=== PATIENT | male | born 1960 | race Caucasian/White ===

== ENCOUNTER 2017-09-10 17:25 | Observation (INO) | payer OTHER ==
[2017-09-10] MEDS ORDERED: NS 500 ML IV ONE (17:55)
--- NOTE | 2017-09-10 17:59 | EDPHY ---
H & P Time Seen by Provider: 09/10/17 17:42 HPI/ROS: CHIEF COMPLAINT: Confusion, fogginess HISTORY OF PRESENT ILLNESS: The patient is a 56-year-old male with no past medical history presents to the emergency department with vague complaints of fogginess and confusion. The patient states that he was lying on the couch yesterday. His told was time for dinner. He noticed an onset of blurred vision. He attempted to get up from the couch but had difficulty. He felt as though his body was not responding and he was in a "dreamlike state." The patient attempted to walk to the kitchen. He felt like he was "drunk." He ran into a chair on the way. He attempted to serve himself dinner but his right arm was uncoordinated. Symptoms lasted for about an hour and then resolved. He woke this morning and felt slightly weird but much better than last evening. He went to work. His symptoms improved at the day. He has had no chest pain or short of breath. No headache or neck pain. No further visual change. No recent fall or trauma. REVIEW OF SYSTEMS: My complete review of systems is negative except as mentioned in the HPI. Past Medical/Surgical History: Negative Past surgical history: Tonsillectomy Social history: The patient does not smoke. He drinks beer regularly. He will alcohol last evening. Family history: His son developed epilepsy Smoking Status: Former smoker Physical Exam: Vitals noted GENERAL: Well-appearing, in no acute distress, alert. HEENT: Eyes normal to inspection, normal pharynx, no signs of dehydration. NECK: [No thyromegaly, no lymphadenopathy, supple. RESPIRATORY: Clear to auscultation bilaterally, no rales, rhonchi or wheezing. CVS: Regular rate and rhythm, no rubs, murmurs, or gallops. ABDOMEN: Soft, nontender, nondistended, no organomegaly. BACK: Normal to inspection, no CVA tenderness. SKIN: Normal color, no rash, warm, dry. No pallor. EXTREMITIES: No pedal edema, no calf tenderness, no Homans sign or cords, no joint swelling. NEURO/PSYCH: Higher functions: Alert and Oriented x3. Normal speech and cognition. Normal mood and affect. Cranial nerves: Normal as tested. Cerebellar: Normal as tested. Good finger to nose, good [id number], normal gait. Peripheral exam: Normal motor exam. Normal sensation. Normal reflexes. NIHSS=0 Constitutional: Initial Vital Signs Temperature (C) 36.9 C 09/10/17 17:30 Heart Rate 64 09/10/17 17:30 Respiratory Rate 18 09/10/17 17:30 Blood Pressure 194/81 H 09/10/17 17:30 O2 Sat (%) 96 09/10/17 17:30 O2 Delivery Mode Room Air Allergies/Adverse Reactions: No Known Allergies Allergy (Unverified 09/10/17 17:33) Home Medications: Medication Instructions Recorded NK [No Known Home Meds] 09/10/17 Medical Decision Making - Diagnostics Imaging Results: Imaging Impressions Brain MRI 09/10/17 17:56 Impression: 1. Small recent lacunar infarct anterior medial left thalamus. 2. Tiny nonspecific hyperintense T2/FLAIR signal abnormality in the white matter of bilateral frontal subcortical white matter superiorly. Differential diagnosis includes microvascular ischemic disease, post-infectious/post- inflammatory sequela, atypical demyelinating disease, or migraine-related sequela. If symptoms worsen, additional imaging may be necessary. Findings discussed with Iwona Arevalo M.D. at 19:01 hour, 09/10/2017. ED Course/Re-evaluation: In the emergency department I discussed possible etiologies with the patient. I answered all of his questions. An IV was placed. Laboratory studies were obtained. MRI was ordered. The patient's symptoms are now resolved. His NIHSS equals 0. His symptoms started yesterday evening during dinner. CBC is normal. Chemistry panel notable for a low CO2 of 20. Coags negative. Troponin negative. EKG shows normal sinus rhythm, normal rate, normal axis, normal intervals. There are no ST or T-wave abnormalities. EKG is normal as interpreted by me. Differential Diagnosis: My differential includes but limited to ischemic CVA, hemorrhagic CVA, dissection, aneurysm, dysrhythmia, ACS, acute NE, electrolyte abnormality, sugar mallet, dehydration, vasovagal episode, seizure - Data Points Laboratory Results: Laboratory Results 09/10/17 17:45 09/10/17 17:45 09/10/17 09/10/17 09/10/17 17:45 17:45 17:45 WBC 6.67 10^3/uL 10^3/uL (3.80-9.50) RBC 4.96 10^6/uL 10^6/uL (4.40-6.38) Hgb 16.8 g/dL g/dL (13.7-17.5) Hct 46.3 % % (40.0-51.0) MCV 93.3 fL fL (81.5-99.8) MCH 33.9 pg pg (27.9-34.1) MCHC 36.3 g/dL g/dL (32.4-36.7) RDW 12.5 % % (11.5-15.2) Plt Count 251 10^3/uL 10^3/uL (150-400) MPV 9.5 fL fL (8.7-11.7) Neut % (Auto) 68.2 % % (39.3-74.2) Lymph % (Auto) 18.9 % % (15.0-45.0) [place] % (Auto) 11.7 % % (4.5-13.0) Eos % (Auto) 0.7 % % (0.6-7.6) Baso % (Auto) 0.4 % % (0.3-1.7) Nucleat RBC Rel Count 0.0 % % (0.0-0.2) Absolute Neuts (auto) 4.54 10^3/uL 10^3/uL (1.70-6.50) Absolute Lymphs (auto) 1.26 10^3/uL 10^3/uL (1.00-3.00) Absolute Monos (auto) 0.78 10^3/uL 10^3/uL (0.30-0.80) Absolute Eos (auto) 0.05 10^3/uL 10^3/uL (0.03-0.40) Absolute Basos (auto) 0.03 10^3/uL 10^3/uL (0.02-0.10) Absolute Nucleated RBC 0.00 10^3/uL 10^3/uL (0-0.01) Immature Gran % 0.1 % % (0.0-1.1) Immature Gran # 0.01 10^3/uL 10^3/uL (0.00-0.10) PT 14.4 SEC SEC (12.0-15.0) INR 1.10 (0.83-1.16) APTT 27.6 SEC SEC (23.0-38.0) Sodium 141 mEq/L mEq/L (134-144) Potassium 3.9 mEq/L mEq/L (3.5-5.2) Chloride 107 mEq/L mEq/L (97-110) Carbon Dioxide 20 mEq/l L mEq/l (22-31) Anion Gap 14 mEq/L mEq/L (8-16) BUN 15 mg/dL mg/dL (7-23) Creatinine 1.1 mg/dL mg/dL (0.7-1.3) Estimated GFR > 60 Glucose 97 mg/dL mg/dL (70-100) Calcium 9.8 mg/dL mg/dL (8.5-10.4) Troponin I < 0.012 ng/mL ng/mL (0.000-0.034) Medications Given: Discontinued Medications Sodium Chloride (Ns) 500 mls @ 500 mls/hr IV EDNOW ONE PRN Reason: Protocol Stop: 09/10/17 18:54 Last Admin: 09/10/17 18:11 Dose: 500 mls Departure - Departure Disposition: Home, Routine, Self-Care Clinical Impression: Ataxia CVA (cerebral vascular accident) Qualifiers: CVA mechanism: unspecified Qualified Code(s): I63.9 - Cerebral infarction, unspecified Condition: Good Referrals: NONE *PRIMARY CARE P,. [Primary Care Provider] - As per Instructions
[2017-09-10 18:03] LABS: PLATELET COUNT 251 10^3/uL (150-400)
--- NOTE | 2017-09-10 18:15 | CPEKG ---
Heart Rate: 51 RR Interval: 1176 P-R Interval: 168 QRSD Interval: 88 QT Interval: 440 QTC Interval: 406 P Kechi: 26 QRS Kechi: -16 T Wave Kechi: 6 EKG Severity - OTHERWISE NORMAL ECG - EKG Impression: SINUS RHYTHM EKG Impression: BORDERLINE LEFT AXIS DEVIATION Electronically Signed By: Elier Aguilar 10-Sep-2017 20:14:57
[2017-09-10 18:16] LABS: INR 1.1 (0.83-1.16); PROTIME(PATIENT) 14.4 SEC (12.0-15.0)
[2017-09-10] MEDS ORDERED: ONDANSETRON DISINTEGRATING 4 MG TAB PO PRN (20:08)
[2017-09-10] MEDS ORDERED: ONDANSETRON 4 MG/2 ML VIAL IVP PRN (20:08)
[2017-09-10] MEDS ORDERED: ACETAMINOPHEN 325 MG TAB PO PRN (20:08)
[2017-09-10] MEDS ORDERED: IOPAMIDOL (ISOVUE 370) 100 ML BTL IV ONE ×3 (20:11→20:24)
--- NOTE | 2017-09-10 20:34 | GHP ---
[f rep st] HISTORY AND PHYSICAL DATE OF ADMISSION: 09/10/2017 CHIEF COMPLAINT: Confusion. HISTORY OF PRESENT ILLNESS: This is a 56-year-old man who had an episode about 8 p.m. last night whe re he felt somewhat confused, felt a little bit clumsy, went to get dinner and tripped over a few thi ngs. He was able to hold his plate normally with his left hand, but he was unable to dish up food wel l with his right hand. He then went to sleep, woke up still feeling slightly abnormal; however, the physical symptoms had resolved. He went to work today, was feeling better. At his 's request, jerrod guadalupe presented to the ED after work. He has had borderline hypertension. No history of hyperlipidemia. No diabetes. He has never had a stroke before. PAST MEDICAL/SURGICAL HISTORY: Borderline hypertension. MEDICATIONS: None. ALLERGIES: No known drug allergies. FAMILY HISTORY: Son has seizures. SOCIAL HISTORY: Does not drink. He works as a mechanical engineering specialist. REVIEW OF SYSTEMS: A 10-point review of systems is conducted and is negative except per HPI. PHYSICAL EXAMINATION: VITAL SIGNS: Blood pressure is 194/81, heart rate 64, respiration rate 18, sa turating 96% on room air. Temperature 36.9. GENERAL: The patient is a pleasant man who is resting comfortably, in no acute distress. HEENT: Shows him to be normocephalic, atraumatic. CARDIOVASCULAR : Exam shows regular rate and rhythm. No murmurs, rubs, or gallops. PULMONARY: Lungs clear to aus cultation bilaterally. ABDOMEN: Soft, nontender, nondistended. SKIN: Shows no rash. GENITOURINAR Y: No Lang. NEUROLOGIC: Exam shows him to be alert and oriented x3. He has no pronator drift. Jerrod guadalupe is able to repeat a short sentence. Motor and sensory are intact in upper and lower extremities. Cranial nerves 2-12 are intact. PSYCHIATRIC: Shows normal mood and affect. LABORATORY: Bicarb is 20. Troponins negative. INR is 1.1. CBC is normal. DATA: 1. I discussed this with will admit to med/surg with telemetry. 2. MRI of his brain shows a small recent lacunar infarct in the inner anterior medial left thalamus. 3. EKG, which I personally viewed and interpreted, shows sinus rhythm. He has left axis deviation. Slightly slow R-wave progression. IMPRESSION AND PLAN: 1. Stroke: Did not get tissue plasminogen activator as he was out of the window. He has no ongoing neurologic deficits. Will admit to med/surg with telemetry monitoring, get echocardiogram imaging o f his carotids. We will start him on an aspirin. Check lipids and A1c. Neurology consult tomorrow. 2. Hypertension: Will allow permissive hypertension overnight. /[id number]/MODL
[2017-09-11] MEDS ORDERED: ASPIRIN EC 81 MG TAB PO SCH (09:00)
[2017-09-11] MEDS ORDERED: ENOXAPARIN 40 MG/0.4 ML SYR SC SCH (09:00)
--- NOTE | 2017-09-11 10:22 | NEUROPROG ---
Assessment: [id number] Neurology Consult Note CC: Dr. Mckenna consulted neurology for stroke. Results placed in EMR for his review. HPI: Pt reported on 09/09/17 he had an episode at 8 pm of feeling confused, clumsy, and noted his right hand had problems with coordinated movement. When he awoke the next morning symptoms had resolved but he decided to come to [facility] ER for evaluation later in the day. Neurologic exam normal at the ER. He denied prior history of stroke. Brain MRI showed a small stroke of the left thalamus as the likely cause of his symptoms. I initially saw the patient on 09/11/17. His neurologic exam was normal at that time and he denied complaints. PMHx: HTN Home Meds: none SHx: no alcohol FHx: son has seizures ROS: No acute fever, total vision loss, active severe chest pain, respiratory failure, total body severe rash, total bowel/bladder incontinence, psychosis, active seizures, or active bleeding O: VS reviewed General: Alert Eyes: Fundoscopic exam not able to visualize optic disks CV: Heart RRR, no murmur, no carotid bruit Lungs: Clear to auscultation bilaterally, no rhonci or rales Neuro: - Mental: . Oriented x person/place/date . concentration appears normal . speech fluency/comprehension normal . memory appears normal . fund of knowledge appear intact - Cranial Nerves: . II: PERRL, VFFTC . III/IV/: EOMI, no nystagmus, normal smooth pursuits, no Ptosis . V: facial sensation intact to LT . VII: face symmetric to eye closure and smile . VIII: hearing intact to conversation . IX/X: uvula raises symmetrically . XI: SCM 5/5 B/L strength . XII: tongue protrudes midline w/nl strength - Motor: . Tone: normal tone in all 4 extrem . Strength: no pronator drift, strength 5/5 throughout (B/L delt, bic, tri, hand agency recruiter, hf/he, df/pf) - Reflexes: B/L bic/BR/patella 2/4 - Sensory: all 4 extrem intact to light touch - Coord: [id number] wnl, FELISA wnl, irqw-ha-orgl wnl - Gait: deferred - NIH SS 0 Labs: 09/10/17- CBC wnl, Coags wnl, Chem CO2 20L, H1AC 5.0, UTox negative 09/11/17- LDL 112H Rads: 09/10/17- Head/neck CTA: noncalcified plaque in carotid bulb B/L, L on left and small on right, neither result in significant stenosis 09/10/17- Brain MRI w/o con: small recent lacunar infarct anterior medial left thalamus, some chronic microvascular disease (I personally visualized the images on 09/11/17) Assessment: 1. Left Thalamic Lacunar Stroke on 09/09/17 causing transient right arm clumsiness and confusion (resolved): Likely mechanism is small vessel disease ( LDL 112). H1AC 5.0, CTA head/neck unremarkable for flow-limiting stenosis ( does show mild b/l carotid plaques), and brain MRI on 09/10/17 showed acute small left thalamic lacunar stroke. Will complete stroke evaluation and begin aspirin /statin for prevention. Plan: - Begin aspirin 325 mg qd, change to 81 mg qd on discharge - LDL goal < 70 (112), recommend beginning statin - H1AC goal < 7.0 (5.0) - Blood Pressure < 140/90 - TTE - 24 hour telemetry - F/U in neurology clinic in 1-6 weeks from hospital discharge If TTE/telemetry are unremarkable then patient can discharge from neurology perspective. Objective: Vital Signs Temp Pulse Resp BP Pulse Ox 36.4 C 64 16 114/72 93 09/11/17 07:21 09/11/17 07:21 09/11/17 07:21 09/11/17 07:21 09/11/17 07:21 09/10/17 09/11/17 09/12/17 05:59 05:59 05:59 Intake Total 500 Output Total 300 Balance 500 -300 PT 14.4 SEC (12.0-15.0) 09/10/17 17:45 INR 1.10 (0.83-1.16) 09/10/17 17:45 Allergies/Adverse Reactions: No Known Allergies Allergy (Unverified 09/10/17 17:33)
[2017-09-11] MEDS ORDERED: ASPIRIN 325 MG TAB PO SCH (11:00)
--- NOTE | 2017-09-11 15:54 | ECHO ---
[email or web address] [address] [address] Main: [phone] Fax: Transthoracic Echocardiogram Name: SARATH SALGADO MR#: [id number] Study Date: 09/11/2017 Study Time: 09:20 AM Date of : 1960 Age: 56 year(s) Height: 182.9 cm (72 in.) Weight: 86.18 kg (190 lb.) BSA: 2.08 m2 Gender: Male Examination: Echo Indication: Ischemic stroke Image Quality: Contrast: Requested by: Russell Mckenna BP: 114 mmHg/72 mmHg Heart Rate: Rhythm: Indication: Ischemic stroke Procedure Staff Livestock Farmer: Maria Isabel Hart Reading Physician: Richard Bedolla Requesting Provider: Conclusions: Normal size left ventricle. No LV hypertrophy. Normal global systolic LV function. The ejection fraction is estimated to be 65-70 %. Normal size right ventricle. An agitated saline study was performed and was negative for intracardiac shunting. The mitral valve is normal in appearance and function. The aortic valve is normal in appearance and function. The tricuspid valve is normal in appearance and function. The pulmonic valve is normal in appearance and function. Measurements: Chambers Valvular Assessment AV/MV Valvular Assessment TV/PV Normal Normal Normal Name Value Range Name Value Range Name Value Range EF Range: 65-70 % Continued Measurements: Findings: Left Ventricle: Normal size left ventricle. No LV hypertrophy. Normal global systolic LV function. The ejection fraction is estimated to be 65-70 %. No regional wall motion abnormality. Right Ventricle: Normal size right ventricle. Left Atrium: The left atrium is normal in size. An agitated saline study was performed and was negative for intracardiac shunting. Patient: SARATH SALGADO Study Date: 09/11/2017 Page 1 of 2 09:20 AM Right Atrium: The right atrium is normal in size. Mitral Valve: The mitral valve is normal in appearance and function. Aortic Valve: The aortic valve is normal in appearance and function. Tricuspid Valve: The tricuspid valve is normal in appearance and function. Pulmonic Valve: The pulmonic valve is normal in appearance and function. Aorta: The aorta is normal. Normal size ascending aorta. Pericardium: No pericardial effusion. (No Signature Object) Patient: SARATH SALGADO Study Date: 09/11/2017 Page 2 of 2 09:20 AM [id number]
--- NOTE | 2017-09-11 16:11 | ASMTCMCOM ---
CM Note CM Note Notes: Chart reviewed. Spoke to hospitalist. Patient should be ready to dc this pm after he has been on telemetry for 24 hours. Per therapies no current needs identified. CM available should needs change . Date Signed: 09/11/2017 04:10 PM Electronically Signed By:HUYEN Villagran
[2017-09-11 20:03] VITALS: BP 125/74; PULSE 59; RESP 16; TEMP 98.3; O2SAT 93
--- NOTE | 2017-09-12 08:51 | GDS ---
[f rep st] DISCHARGE SUMMARY DISCHARGE DIAGNOSES: Left thalamic lacunar stroke. CONSULTATIONS: Dr. Gerber Johnson of Neurology. STUDIES AND PROCEDURES DONE: 1. MRI of the brain. 2. CT angio of the head and neck. 3. Echocardiogram. PHYSICAL EXAM: GENERAL: The patient is alert. VITAL SIGNS: Afebrile at 36.9, pulse is 64, respira tory rate 19, blood pressure is 129/70. He is saturating greater than 90% on room air. I have seen and evaluated the patient on the day of discharge. HOSPITAL COURSE: The patient is a 56-year-old male who presented to the emergency room after having right arm clumsiness with some confusion. He was evaluated and diagnosed with a left thalamic lacuna r stroke. During this hospital course, he had a CT angio of his head and neck, which was unremarkabl e, as well as a brain MRI, noting acute small left thalamic lacunar stroke. He did receive a consult ation from Neurology. The patient was initiated on an aspirin 325 mg a day and continued to 81 mg at the time of discharge. He was also started on Lipitor for an LDL goal of less than 70. His LDL dur ing this hospitalization was 112. The patient had an echocardiogram which was unremarkable as well a s 24-hour telemetry monitoring. His condition has completely resolved. He has returned to baseline. He will be discharged home to follow up in the outpatient setting with his primary care physician, as well as Dr. Johnson of Neurology. There are no pending studies. DISCHARGE MEDICATIONS: Please refer to EMR form. The patient will continue on aspirin 81 mg daily i n the outpatient setting. /[id number]/MODL
--- NOTE | 2017-09-12 14:47 | ASDISCHSUM ---
Discharge Information Plan Status:Home with No Needs Medically Cleared to Leave:09/10/2017 Discharge Date:09/11/2017 09:17 PM CM D/C Disposition:Home, Routine, Self-Care ADT D/C Disposition:Home, Routine, Self-Care Projected Discharge Date:09/11/2017 09:17 PM Transportation at D/C: Discharge Delay Reason: Follow-Up Date:09/11/2017 09:17 PM Discharge Slot: Final Diagnosis: Placement Information Patient Contact Information Contact Name:SVETANEGREGORY Relationship: Address:[address] Work Phone: City:[place] Alternate Phone: State/Zip Code:[place] [address] Email: Financial Information Financial Class:[facility] Primary Plan Desc:[employer] LOCAL Primary Plan Number:[id number] Secondary Plan Desc: Secondary Plan Number: Assessment Information [facility] CM Progress Note CM Note CM Note Notes: Chart reviewed. Spoke to hospitalist. Patient should be ready to dc this pm after he has been on telemetry for 24 hours. Per therapies no current needs identified. CM available should needs change . Date Signed: 09/11/2017 04:10 PM Electronically Signed By:HUYEN Villagran Intervention Information
== END 2017-09-11 21:17 | disposition home or self-care (01) ==
LOC: F3N 21:30
PROVIDERS: ADMIT Student in an Organized Health Care Education/Training Program; ATTEND Student in an Organized Health Care Education/Training Program
DX: I63.8 Other cerebral infarction (principal); I10 Essential (primary) hypertension
CPT/HCPCS: 70496; 70498; 70551; 92523; 92610; 93005; 93306; G0378; 80305; Q9967

== ENCOUNTER 2018-01-21 07:47 | Day surgery (SDC) | payer OTHER ==
[2018-01-21] MEDS ORDERED: LIDOCAINE 1% 2 ML INJ ID PRN (07:57)
[2018-01-21] MEDS ORDERED: LR 1,000 ML IV ONE (07:57)
--- NOTE | 2018-01-21 09:10 | PDGENHP ---
History & Physical Chief Complaint: cc screening History of Present Illness: cc screening, no fhx Pertinent Past, Social, Family History: no tobacco. alcohol very rare. no fhx cc or colon polyps Relevant Physical Exam: A+Ox3. CTA. S1S2, RRR. +BS soft nt Cardiorespiratory Assessment: class 2
[2018-01-21] MEDS ORDERED: PROPOFOL/EMULSION 500 MG/50 ML BOTTLE IV ONE (09:18)
[2018-01-21] MEDS ORDERED: fentaNYL 100 MCG/2 ML INJ IVP PRN (09:31)
[2018-01-21] MEDS ORDERED: ONDANSETRON 4 MG/2 ML VIAL IVP PRN (09:31)
[2018-01-21] MEDS ORDERED: NALOXONE HCL 0.4 MG/ML INJ IVP PRN (09:31)
--- NOTE | 2018-01-21 09:31 | PDANEPAE ---
ANE History of Present Illness here for colonoscopy ANE Past Medical History - Cardiovascular History Hx Hypertension: No Hx Arrhythmias: No Hx Chest Pain: No Hx Coronary Artery / Peripheral Vascular Disease: No Hx CHF / Valvular Disease: No Hx Palpitations: No Cardiovascular History Comment: CHOL RX - Pulmonary History Hx COPD: No Hx Asthma/Reactive Airway Disease: No Hx Recent Upper Respiratory Infection: No Hx Oxygen in Use at Home: No Hx Sleep Apnea: No Sleep Apnea Screening Result - Last Documented: Negative - Neurologic History Hx Cerebrovascular Accident: Yes Hx Seizures: No Hx Dementia: No Neurologic History Comment: L THALAMUS STROKE 1-18. NO WEAKNESS/DEFICITS. - Endocrine History Hx Diabetes: No - Renal History Hx Renal Disorders: No - Liver History Hx Hepatic Disorders: No - Neurological & Psychiatric Hx Hx Neurological and Psychiatric Disorders: No - Cancer History Hx Cancer: No - Congenital Disorder History Hx Congenital Disorders: No - GI History Hx Gastrointestinal Disorders: No - Other Health History Other Health History: SCREENING COLONOSCOPY - Chronic Pain History Chronic Pain: No - Surgical History Prior Surgeries: TONSILLECTOMY-CHILD ANE Review of Systems Review of systems is: negative Review of Systems: - Exercise capacity Exercise capacity: >=4 METS METS (RN): 5 METS ANE Patient History - Allergies Allergies/Adverse Reactions: No Known Allergies Allergy (Verified 01/20/18 17:15) - Home Medications Home Medications: Pravastatin Sodium 01/20/18 [Last Taken 01/19/18] - NPO status NPO Status: no food or drink >8 hours NPO Since - Liquids (Date): 01/21/18 NPO Since - Liquids (Time): 06:00 NPO Since - Solids (Date): 01/20/18 NPO Since - Solids (Time): 08:30 - Smoking Hx Smoking Status: Former smoker ANE Labs/Vital Signs - Vital Signs Vital Signs: reviewed preoperatively; see RN documention for details Blood Pressure: 125/74 Heart Rate: 59 Respiratory Rate: 16 O2 Sat (%): 978 Height: 182.88 cm Weight: 86.183 kg ANE Physical Exam - Airway Neck exam: FROM Mallampati Score: Class 1 - Pulmonary Pulmonary: no respiratory distress - Cardiovascular Cardiovascular: regular rate and rhythym - ASA Status ASA Status: II ANE Anesthesia Plan Anesthesia Plan: GA with mask
[2018-01-21] MEDS ORDERED: PROPOFOL 200 MG/20 ML VIAL ONE (09:50)
--- NOTE | 2018-01-21 10:45 | GIREPORT ---
[facility] Surgical Services - Endoscopy Department Patient Name: Too Coello Procedure Date: 01/21/2018 9:03 AM Patient Type: Outpatient Attending MD/ ER Physician: Pallavi DeL a Cruz Procedure: Colonoscopy Indications: Screening for colorectal malignant neoplasm Providers: Cruz Cerna MD Referring MD: Isaiah Prescott MD Medicines: Total IV Anesthesia (TIVA) = IV general w/o airway Complications: No immediate complications. Estimated blood loss: Minimal. Description of Procedure: After obtaining informed consent, the scope was passed under direct vis ion. Throughout the procedure, the patient's blood pressure, pulse, and oxyg en saturations were monitored continuously. The Colonoscope with irrigatio n channel was introduced through the anus and advanced to the terminal il eum, with identification of the appendiceal orifice and IC valve. The colono scopy was performed without difficulty. The patient tolerated the procedure w ell. The quality of the bowel preparation was good. Findings: The digital rectal exam was normal. The terminal ileum appeared normal. A 11 mm polyp was found in the proximal ascending colon. The polyp was sessile. The polyp was removed with a cold snare. Resection and retriev al were complete. Estimated blood loss was minimal. A localized area of congested, erythematous, granular and thickened fol ds of the mucosa was found in the ascending colon. Biopsies were taken with a cold forceps for histology. Estimated blood loss was minimal. A 9 mm polyp was found in the rectum. The polyp was semi-sessile. The p olyp was removed with a hot snare. Resection and retrieval were complete. Estimated blood loss: none. The exam was otherwise without abnormality. Estimated Blood Loss: Estimated blood loss was minimal. Post Op Diagnosis: - The examined portion of the ileum was normal. - One 11 mm polyp in the proximal ascending colon, removed with a cold snare. Resected and retrieved. - Congested, erythematous, granular and thickened folds of the mucosa i n the ascending colon. Biopsied. - One 9 mm polyp in the rectum, removed with a hot snare. Resected and retrieved. - The examination was otherwise normal. Recommendation: - Await pathology results. - My office will call with the pathology result with 5-7 days. If you h ave not heard from my office by 12-14, do not assume the pathology is luis fernando l, please call [phone] to get the pathology results. - Repeat colonoscopy in 3 years for surveillance based on pathology res ults. If the pathology of the abnormal tissue in the ascending colon is with caner potential, then repeat colonoscopy within 3-6 months for removal by EMR = Endoscopic mucosal resection. - If pathology reveal adenomatous tissue, then all first degree relativ e should have screening colonoscopy starting at age 40 - Resume previous diet. - Patient has a contact number available for emergencies. The signs and symptoms of potential delayed complications were discussed with the pat ient. Return to normal activities tomorrow. Written discharge instructions we re provided to the patient. - Continue present medications. - Avoid Aspirin and NSAID's for 7-10 days except as used for cardiac or stroke prevention. - Discharge patient to home (ambulatory). - Return to primary care physician as previously scheduled. - Thank you for allowing me to help in your patient's care. Do not hesi sharif to call with any questions. Attending Participation: I personally performed the entire procedure. Nehemiah Arroyo M.D Cruz Cerna MD 01/21/2018 10:45:38 AM This report has been signed electronicallyMathew MD Nehemiah Number of Addenda: 0 Note Initiated On: 01/21/2018 9:03 AM Total Procedure Duration Time 0 hours 28 minutes 22 seconds [email or web address]
[2018-01-21 12:26] VITALS: BP 122/65
--- NOTE | 2018-01-21 12:48 | POSTANESTH ---
Post Anesthetic Evaluation Cardiovascular Status: Normal, Stable Respiratory Status: Normal, Stable Level of Consciousness/Mental Status: Can Participate in Eval Pain Control: Adequate, Prn Tx Ordered Nausea/Vomiting Control: Adequate, Prn Tx Ordered Complications Possibly Related to Anesthesia: None Noted
== END 2018-01-21 11:18 | disposition home or self-care (01) ==
LOC: FSGY 07:47
PROVIDERS: ATTEND Internal Medicine Gastroenterology
DX: Z12.11 Encounter for screening for malignant neoplasm of colon (principal); D12.2 Benign neoplasm of ascending colon; D12.8 Benign neoplasm of rectum
CPT/HCPCS: J2704